=== PATIENT | female | born 1955 | race African-American/Black ===

== ENCOUNTER 2021-05-19 19:55 | Observation (INO) | payer OTHER ==
[2021-05-19 20:06] VITALS: BMI 33.8
[2021-05-19 20:37] LABS: BASO % 0.8 % (0-2.0); EOS % 0.5 % (0-4.5); HEMATOCRIT 38.4 % (32.4-45.2); HEMOGLOBIN 12.9 GM/dL (10.7-15.3); MCH 30.8 pg (25.7-33.7); MCHC 33.6 g/dl (32.0-36.0); MEAN CELL VOLUME 91.9 fl (80-96); MEAN PLT VOLUME 6.8 fl (7.5-11.1); MONO % 4.4 % (3.8-10.2); NEUT % 75.3 % (42.8-82.8); PLATELET COUNT 250 10^3/uL (134-434); RBC 4.18 M/mm3 (3.60-5.2); RDW 14.7 % (11.6-15.6); WHITE BLOOD COUNT 7.3 K/mm3 (4.0-10.0)
[2021-05-19] MEDS ORDERED: METOCLOPRAMIDE HCL INJECTION 10 MG/2 ML VIAL IVPUSH ONE (20:45)
[2021-05-19] MEDS ORDERED: SODIUM CHLORIDE 0.9% 500 ML INFUS.BAG IV ONE (20:45)
[2021-05-19] MEDS ORDERED: METOCLOPRAMIDE HCL INJECTION 10 MG/2 ML VIAL ONE (20:49)
[2021-05-19 20:57] LABS: CHLORIDE 105 mmol/L (98-107); SODIUM 127 mmol/L (136-145)
[2021-05-19 20:59] LABS: CALCIUM 8.9 mg/dL (8.5-10.1)
[2021-05-19 21:00] LABS: ALBUMIN 4.2 g/dl (3.4-5.0); BLOOD UREA NITROGEN 16.5 mg/dL (7-18); CO2 29 mmol/L (21-32); GLUCOSE,RANDOM 95 mg/dL (74-106); MAGNESIUM 2.6 mg/dL (1.8-2.4)
[2021-05-19 21:03] LABS: CREATININE 1.1 mg/dL (0.55-1.3)
[2021-05-19 21:05] LABS: BILIRUBIN,TOTAL 0.2 mg/dL (0.2-1); TOT PROT 8.6 g/dl (6.4-8.2)
[2021-05-19 21:06] LABS: ALK PHOS 57 U/L (45-117)
[2021-05-19 21:19] LABS: EPI CELLS 15 /uL (0-25.1); HYALINE CASTS 0 /uL (0-3.1); URINE APPEARANCE CLEAR; URINE BACTERIA 47 /uL (0-1359); URINE BILIRUBIN NEGATIVE (NEGATIVE); URINE COLOR YELLOW; URINE GLUCOSE (UA) NEGATIVE (NEGATIVE); URINE KETONE NEGATIVE (NEGATIVE); URINE LEUK ESTERASE 1+ (NEGATIVE); URINE NITRITE NEGATIVE (NEGATIVE); URINE PROTEIN NEGATIVE (NEGATIVE); URINE RBC 4 /uL (0-23.9); URINE UROBILINOGEN 0.2 mg/dL (0.2-1.0); URINE WBC 20 /uL (0-25.8)
[2021-05-19 21:21] LABS: ANION GAP -7 MMOL/L (8-16); SGOT/AST 137 U/L (15-37); SGPT/ALT 47 U/L (13-61)
[2021-05-19 21:52] LABS: CALCIUM 9.5 mg/dL (8.5-10.1)
[2021-05-19 21:53] LABS: BLOOD UREA NITROGEN 15.2 mg/dL (7-18)
[2021-05-19 21:56] LABS: CREATININE 0.9 mg/dL (0.55-1.3)
[2021-05-20] MEDS ORDERED: METOCLOPRAMIDE HCL INJECTION 10 MG/2 ML VIAL IVPUSH PRN (01:22)
[2021-05-20] MEDS ORDERED: GABAPENTIN 300 MG CAPSULE ONE ×2 (07:11→13:39)
[2021-05-20] MEDS ORDERED: LEVOTHYROXINE NA 50 MCG TABLET (FP) ONE (07:11)
[2021-05-20] MEDS: GABAPENTIN 300 MG CAPSULE PO SCH ×3 (07:17→22:27)
[2021-05-20] MEDS: LEVOTHYROXINE NA 100 MCG TABLET (FP) PO SCH (07:17)
[2021-05-20 07:57] LABS: HEMATOCRIT 37.1 % (32.4-45.2); HEMOGLOBIN 12.5 GM/dL (10.7-15.3); MCHC 33.6 g/dl (32.0-36.0); MEAN CELL VOLUME 92.3 fl (80-96); PLATELET COUNT 254 10^3/uL (134-434); RBC 4.02 M/mm3 (3.60-5.2); RDW 14.1 % (11.6-15.6); WHITE BLOOD COUNT 4.2 K/mm3 (4.0-10.0)
[2021-05-20 08:22] LABS: BLOOD UREA NITROGEN 11.7 mg/dL (7-18); CALCIUM 9.7 mg/dL (8.5-10.1)
[2021-05-20 08:26] LABS: CREATININE 0.8 mg/dL (0.55-1.3)
[2021-05-20] MEDS ORDERED: ASPIRIN 81 MG CHEWABLE TABLETS ONE (09:46)
[2021-05-20] MEDS ORDERED: ENOXAPARIN NA (PORCINE) 40 MG/0.4 ML DISP.SYRIN SQ ONE (09:46)
[2021-05-20] MEDS: ASPIRIN 81 MG CHEWABLE TABLETS PO SCH (09:49)
[2021-05-20] MEDS: ENOXAPARIN NA (PORCINE) 40 MG/0.4 ML DISP.SYRIN SQ SCH (09:50)
[2021-05-20] MEDS ORDERED: PATIENT'S OWN MEDICATION (NON-FORMULARY) (Mirabegron [Myrbetriq] 50 MG Tab.Er.24h) PO SCH (10:00)
[2021-05-20] MEDS ORDERED: LISINOPRIL 10 MG TABLET PO SCH (12:45)
[2021-05-20] MEDS ORDERED: MULTIVITAMINS (DAILY MVI) TABLET (FP) ONE (13:37)
[2021-05-20] MEDS: MULTIVITAMINS (DAILY MVI) TABLET (FP) PO SCH (13:40)
[2021-05-20] MEDS: ACETAMINOPHEN 325 MG TABLET (FP) PO PRN (20:01)
[2021-05-20] MEDS ORDERED: ATORVASTATIN CA 20 MG TABLET (FP) PO SCH (22:00)
[2021-05-21] MEDS: GABAPENTIN 300 MG CAPSULE PO SCH ×2 (06:05→13:31)
[2021-05-21] MEDS: LEVOTHYROXINE NA 100 MCG TABLET (FP) PO SCH (06:05)
[2021-05-21] MEDS: ACETAMINOPHEN 325 MG TABLET (FP) PO PRN (09:52)
[2021-05-21] MEDS: ENOXAPARIN NA (PORCINE) 40 MG/0.4 ML DISP.SYRIN SQ SCH (09:52)
[2021-05-21] MEDS: ASPIRIN 81 MG CHEWABLE TABLETS PO SCH (09:54)
[2021-05-21] MEDS: MULTIVITAMINS (DAILY MVI) TABLET (FP) PO SCH (09:54)
[2021-05-21] MEDS ORDERED: LISINOPRIL 10 MG TABLET PO SCH (10:00)
[2021-05-21 18:45] VITALS: BP 134/85; PULSE 78; TEMP 97.8
== END 2021-05-21 18:45 | disposition home or self-care (01) ==
LOC: JER 19:55 → JERBED 23:33 → UNDOADMOB 23:33 → INTOOBSV 23:33 → JERBED 05-20 01:21 → J4S 05-20 19:09
PROVIDERS: ADMIT Hospitalist; ATTEND Internal Medicine
PROC: 3E023GC Introduction of Other Therapeutic Substance into Muscle, Percutaneous Approach (ICD-10-PCS; principal; 2021-05-20)
PROC: 3E033GC Introduction of Other Therapeutic Substance into Peripheral Vein, Percutaneous Approach (ICD-10-PCS; 2021-05-20)
PROC: 3E0337Z Introduction of Electrolytic and Water Balance Substance into Peripheral Vein, Percutaneous Approach (ICD-10-PCS; 2021-05-20)
DX: R42 Dizziness and giddiness (principal); I10 Essential (primary) hypertension; K21.9 Gastro-esophageal reflux disease without esophagitis; I49.8 Other specified cardiac arrhythmias; I44.0 Atrioventricular block, first degree; H55.00 Unspecified nystagmus; E66.8 Other obesity; Z68.33 Body mass index [BMI] 33.0-33.9, adult; M54.9 Dorsalgia, unspecified; G89.29 Other chronic pain; E78.5 Hyperlipidemia, unspecified; R32 Unspecified urinary incontinence; R26.89 Other abnormalities of gait and mobility
CPT/HCPCS: 36415; 70450-TC; 70551-TC; 71045-TC-FY; 80048; 80053; 80061; 81003; 82962; 83036; 83735; 84443; 84484; 85025; 85027; 87086; 93005; 93010; 93880-TC; 99285-25; C9803-CS; G0378; U0003; U0005